=== PATIENT | female | born 1945 | race Caucasian/White ===

== ENCOUNTER 2017-06-15 22:01 | Emergency (ER) | payer OTHER ==
[~2017-06-15] VITALS: Ht 162.6 cm; Wt 78.0 kg
[2017-06-15 22:05] VITALS: Ht 162.6 cm; Wt 78.0 kg
[2017-06-15] MEDS ORDERED: SOD CHLORIDE 0.9% 500 ML IV STA (23:56)
[2017-06-16 00:47] LABS: BASOPHILS % 0.6 % (0.0-2.0); EOSINOPHILS # 0.2 10^3/ul (0.0-0.5); EOSINOPHILS % 3.1 % (0.0-7.0); HEMATOCRIT 36.8 % (37.0-47.0); HEMOGLOBIN 12.5 g/dl (12.0-16.0); LYMPHOCYTES # 1.5 10^3/ul (0.8-2.9); LYMPHOCYTES % 31.3 % (15.0-51.0); MEAN CORPUSCULAR HEMOGLOBIN 30.3 pg (29.0-33.0); MEAN CORPUSCULAR VOLUME 89.3 fl (82.0-101.0); MEAN PLATELET VOLUME 9.9 fl (7.4-10.4); MONOCYTE # 0.5 10^3/ul (0.3-0.9); MONOCYTES % 9.6 % (0.0-11.0); NEUTROPHIL # 2.7 10^3/ul (1.6-7.5); PLATELET COUNT 264 10^3/UL (140-415); RED BLOOD COUNT 4.12 10^6/ul (4.20-5.40); RED CELL DISTRIBUTION WIDTH 13.1 % (11.5-14.5); WHITE BLOOD COUNT 4.9 10^3/ul (4.8-10.8)
[2017-06-16 01:04] LABS: INR 0.98
[2017-06-16 01:05] LABS: PARTIAL THROMBOPLASTIN TIME 29.4 Sec (25.0-35.0)
[2017-06-16 01:10] LABS: ADD UMIC NO; UR ASCORBIC ACID NEGATIVE (NEGATIVE); UR BILIRUBIN (Dip) NEGATIVE (NEGATIVE); UR BLOOD (Dip) NEGATIVE (NEGATIVE); UR CLARITY CLEAR (CLEAR); UR COLOR COLORLESS (YELLOW); UR GLUCOSE (Dip) NEGATIVE (NEGATIVE); UR KETONES (Dip) NEGATIVE (NEGATIVE); UR LEUKOCYTE ESTERASE (Dip) NEGATIVE Leu/ul (NEGATIVE); UR NITRITE (Dip) NEGATIVE (NEGATIVE); UR RBC 0 /HPF (0-5); UR SPECIFIC GRAVITY (Dip) 1.003 (1.003-1.030); UR TOTAL PROTEIN (Dip) NEGATIVE (NEGATIVE); UR UROBILINOGEN (Dip) NEGATIVE (NEGATIVE)
[2017-06-16 01:28] LABS: ANION GAP 18 (8-16); BLOOD UREA NITROGEN 9 mg/dl (7-20); CALCIUM 9.5 mg/dl (8.4-10.2); CARBON DIOXIDE 26 mmol/L (21-31); CHLORIDE 99 mmol/L (97-110); CREATININE 0.72 mg/dl (0.44-1.00); GLUCOSE 124 mg/dl (70-220); POTASSIUM 4.3 mmol/L (3.5-5.1); SODIUM 139 mmol/L (135-144)
--- NOTE | 2017-06-16 01:35 | RADRPT ---
PROCEDURE: Chest. CLINICAL INDICATION: Chest pain. TECHNIQUE: Single frontal view of the chest was obtained. COMPARISON: None. FINDINGS: The cardiac silhouette is within normal limits. The aortic arch is unremarkable. There is no focal consolidation, vascular congestion or pleural effusion. There is no pneumothorax. IMPRESSION: No evidence for active cardiopulmonary disease. .Dario Bansal MD, MD Date Time Electronically viewed and signed by .Dario Bansal MD, on 06/16/2017 01:35 .T/
[2017-06-16 01:40] LABS: TROPONIN-I < 0.012 ng/ml (0.00-0.12)
[2017-06-16] MEDS ORDERED: GINGKO BILOBA PO (02:30)
[2017-06-16] MEDS ORDERED: LANZOPRAZOLE PO (02:30)
--- NOTE | 2017-06-16 02:47 | RADRPT ---
PROCEDURE: Noncontrast CT Head. CLINICAL INDICATION: Headache. TECHNIQUE: Noncontrast CT of the head was obtained. The administered radiation dose was CTDI vol = 45 mGy, DLP = 720 mGy-cm. COMPARISON: No pertinent prior examinations were submitted for comparison. FINDINGS: The ventricles and cortical sulci are mildly enlarged. There is mild decreased attenuation within t he periventricular and subcortical white matter compatible with chronic microvascular changes. There is no acute intracranial hemorrhage or extra-axial fluid collection. There is no mass effect . No midline shift is identified. There is no loss of calzada-white differentiation to suggest acute in farction. The orbits are within normal limits. The paranasal sinuses are well aerated. No destructive osseous lesion is identified. IMPRESSION: No acute findings. Mild diffuse parenchymal volume loss and chronic microvascular changes. RPTAT: HIKT .Edwin Marley MD, MD Date Time Electronically viewed and signed by .Edwin Marley MD, MD on 06/16/2017 02:46 .T/
[2017-06-16 03:00] VITALS: BP 127/81; PULSE 78; RESP 16
[2017-06-16] MEDS ORDERED: MECL-77 PO (03:18)
--- NOTE | 2017-06-16 03:20 | ERD ---
ER Documentation Chief Complaint Date/Time DATE: 06/16/17 TIME: 03:19 Chief Complaint dizziness x 1 day HPI 71-year-old female complains of dizziness for 1 day. She says the room is spinning. Diagnosis of vertigo previously. No nausea no vomiting no chills. No other current complaints. ROS All systems reviewed and are negative except as per history of present illness. Medications Home Meds Active Scripts Meclizine Hcl* (Meclizine Hcl*) 25 Mg Tablet, 25 MG PO Q8H Y for DIZZINESS, #30 TAB Prov:NONA MANCINI 06/16/17 Reported Medications [Lanzoprazole ] No Conflict Check, 20 MG PO QAM 06/16/17 [Gingko Biloba] Unknown Strength No Conflict Check, PO DAILY 06/16/17 Discontinued Reported Medications [none] No Conflict Check 10/21/16 Allergies Allergies: Coded Allergies: Penicillins (Verified Allergy, Intermediate, 10/21/16) Sulfa (Sulfonamide Antibiotics) (Verified Allergy, Intermediate, 10/21/16) Tetracyclines (Verified Allergy, Intermediate, 10/21/16) PMhx/Soc History of Surgery: Yes (hernia repair) Anesthesia Reaction: No Hx Neurological Disorder: No Hx Respiratory Disorders: No Hx Cardiac Disorders: No Hx Psychiatric Problems: No Hx Miscellaneous Medical Probl: Yes (vertigo) Hx Alcohol Use: No Hx Substance Use: No Hx Tobacco Use: No Smoking Status: Never smoker Physical Exam Vitals Vital Signs Date Time Temp Pulse Resp B/P Pulse Ox O2 Delivery O2 Flow Rate FiO2 06/16/17 00:35 69 16 122/72 100 Room Air 06/15/17 22:05 98.5 84 20 141/67 98 Physical Exam Const: [] Head: Atraumatic Eyes: Normal Conjunctiva ENT: Normal External Ears, Nose and Mouth. Neck: Full range of motion..~ No meningismus. Resp: Clear to auscultation bilaterally Cardio: Regular rate and rhythm, no murmurs Abd: Soft, non tender, non distended. Normal bowel sounds Skin: No petechiae or rashes Back: No midline or flank tenderness Ext: No cyanosis, or edema Neur: Awake and alert Psych: Normal Mood and Affect Result Diagram: 06/16/17 0020 06/16/17 0020 Results 24 hrs Laboratory Tests Test 06/16/17 00:20 06/16/17 00:35 White Blood Count 4.910^3/ul Red Blood Count 4.1210^6/ul Hemoglobin 12.5g/dl Hematocrit 36.8% Mean Corpuscular Volume 89.3fl Mean Corpuscular Hemoglobin 30.3pg Mean Corpuscular Hemoglobin Concent 34.0g/dl Red Cell Distribution Width 13.1% Platelet Count 81085^3/UL Mean Platelet Volume 9.9fl Neutrophils % 55.0% Lymphocytes % 31.3% Monocytes % 9.6% Eosinophils % 3.1% Basophils % 0.6% Nucleated Red Blood Cells % 0.0/100WBC Neutrophils # 2.710^3/ul Lymphocytes # 1.510^3/ul Monocytes # 0.510^3/ul Eosinophils # 0.210^3/ul Basophils # 0.010^3/ul Nucleated Red Blood Cells # 0.010^3/ul Prothrombin Time 13.0Sec Prothrombin Time Ratio 1.0 INR International Normalized Ratio 0.98 Activated Partial Thromboplast Time 29.4Sec Sodium Level 139mmol/L Potassium Level 4.3mmol/L Chloride Level 99mmol/L Carbon Dioxide Level 26mmol/L Anion Gap 18 Blood Urea Nitrogen 9mg/dl Creatinine 0.72mg/dl Glucose Level 124mg/dl Calcium Level 9.5mg/dl Troponin I < 0.012ng/ml Urine Color COLORLESS Urine Clarity CLEAR Urine pH 8.0 Urine Specific [place] 1.003 Urine Ketones NEGATIVEmg/dL Urine Nitrite NEGATIVEmg/dL Urine Bilirubin NEGATIVEmg/dL Urine Urobilinogen NEGATIVEmg/dL Urine Leukocyte Esterase NEGATIVELeu/ul Urine Microscopic RBC 0/HPF Urine Microscopic WBC 3/HPF Urine Hemoglobin NEGATIVEmg/dL Urine Glucose NEGATIVEmg/dL Urine Total Protein NEGATIVEmg/dl Current Medications Medications (Trade) Dose Ordered Sig/Tereso Route PRN Reason Start Time Stop Time Status Last Admin Dose Admin Sodium Chloride (NS) 500 ml @ 500 mls/hr Q1H STAT IV 06/15/17 23:56 06/16/17 00:55 DC 06/16/17 00:15 Procedures/MDM EKG: Rate/Rhythm: Normal Sinus Rhythm QRS, ST, T-waves: No changes consistent w/ acute ischemia Impression: No evidence of ischemia or arrhythmia Chest X-ray 1V Interpreted by me: Soft Tissue: No acute abnormalities Bones: No acute abnormalities Mediastinum/Cardiac Silhouette/Lungs: No acute abnormalities Medical decision-makin year female reactivation of vertigo. At this point feels much better. Patient discharged on meclizine. Told return for return of symptoms. No evidence of central origin. Departure Diagnosis: Primary Impression: Dizziness Condition: Stable NONA MANCINI Jun 16, 2017 03:20
== END 2017-06-16 03:30 | disposition home or self-care (01) ==
LOC: E/R 22:01
DX: R42 Dizziness and giddiness (principal); R07.9 Chest pain, unspecified
CPT/HCPCS: 36415; 70450; 71010; 80048; 81003; 84484; 85025; 85610; 85730; 93005; 99285; J7040